=== PATIENT | female | born 1985 | race American Indian/Alaskan Native ===

== ENCOUNTER 2020-03-13 12:55 | Outpatient (REF) | payer OTHER, SELFPAY | END 2020-03-13 12:56 | disposition home or self-care (01) | LOC: HO.LAB 12:55 | PROVIDERS: Visit Provider Internal Medicine | DX: Z20.828 Contact with and (suspected) exposure to other viral communicable diseases (principal) | CPT/HCPCS: 87635 ==

== ENCOUNTER 2020-05-31 10:46 | Outpatient (REF) | payer OTHER, SELFPAY ==
[2020-06-01 10:30] LABS: BV Int Neg Control Negative (Negative); BV Int Pos Control Positive (Positive)
[2020-06-01 18:52] LABS: C. trachomatis RNA TMA NOT DETECTED (NOT DETECTED); N. gonorrhoeae RNA TMA NOT DETECTED (NOT DETECTED)
[2020-06-02 19:17] LABS: HPV mRNA E6/E7 Not Detected (Not Detected)
== END 2020-05-31 10:47 | disposition home or self-care (01) ==
LOC: HO.LAB 10:46
PROVIDERS: PCP Internal Medicine; Referring Provider Internal Medicine; Visit Provider Obstetrics & Gynecology
DX: Z12.4 Encounter for screening for malignant neoplasm of cervix (principal); R10.2 Pelvic and perineal pain; N89.8 Other specified noninflammatory disorders of vagina
CPT/HCPCS: 36415; 81002; 81025; 87480; 87491; 87510; 87591; 87624; 87660; 88141; 88142

== ENCOUNTER 2020-06-15 14:04 | Outpatient (REF) | payer OTHER, SELFPAY | END 2020-06-15 14:05 | disposition home or self-care (01) | LOC: HO.LAB 14:04 | PROVIDERS: Visit Provider Internal Medicine | DX: Z20.822 Contact with and (suspected) exposure to COVID-19 (principal) | CPT/HCPCS: 36415; C9803; U0003 ==

== ENCOUNTER 2020-06-28 13:26 | Outpatient (REF) | payer OTHER, SELFPAY ==
--- NOTE | ~2020-06-28 | US_ITS ---
EXAMINATION: PELVIC ULTRASOUND CLINICAL INFORMATION: Pain COMPARISON: Previous CT of the abdomen and pelvis October 2019 TECHNIQUE: Transabdominal and transvaginal pelvic ultrasound was performed. Transvaginal exam was performed for better visualization of the uterus and ovaries. FINDINGS: The uterus is retroverted and measures 10.8 x 5.5 x 7.3 cm in dimension. There is a 1.2 x 0.7 x 1 cm hypoechoic intramural lesion in the anterior upper uterine body suggestive of a fibroid. No other focal uterine lesion is seen. Endometrial thickness is normal estimated at 1 cm. The ovaries are normal in size. The right ovary measures 3.6 x 2 x 2.7 cm and the left ovary measures 3.8 x 1.8 x 2.8 cm. There are multiple small peripheral cysts or follicles seen in both ovaries. Appearance is questionable for polycystic ovarian syndrome. There is a small amount of fluid in the pelvis. US/US pelvic complete IMPRESSION: Small 1 cm uterine fibroid. Normal size ovaries with multiple peripheral simple cysts or follicles. Appearance is questionable for polycystic ovarian syndrome.
--- NOTE | ~2020-06-28 | US_ITS ---
EXAMINATION: PELVIC ULTRASOUND CLINICAL INFORMATION: Pain COMPARISON: Previous CT of the abdomen and pelvis October 2019 TECHNIQUE: Transabdominal and transvaginal pelvic ultrasound was performed. Transvaginal exam was performed for better visualization of the uterus and ovaries. FINDINGS: The uterus is retroverted and measures 10.8 x 5.5 x 7.3 cm in dimension. There is a 1.2 x 0.7 x 1 cm hypoechoic intramural lesion in the anterior upper uterine body suggestive of a fibroid. No other focal uterine lesion is seen. Endometrial thickness is normal estimated at 1 cm. The ovaries are normal in size. The right ovary measures 3.6 x 2 x 2.7 cm and the left ovary measures 3.8 x 1.8 x 2.8 cm. There are multiple small peripheral cysts or follicles seen in both ovaries. Appearance is questionable for polycystic ovarian syndrome. There is a small amount of fluid in the pelvis. US/US transvaginal IMPRESSION: Small 1 cm uterine fibroid. Normal size ovaries with multiple peripheral simple cysts or follicles. Appearance is questionable for polycystic ovarian syndrome.
== END 2020-06-28 13:27 | disposition home or self-care (01) ==
LOC: HO.US 13:26
PROVIDERS: PCP Internal Medicine; Visit Provider Obstetrics & Gynecology
DX: R10.2 Pelvic and perineal pain (principal)
CPT/HCPCS: 76830; 76856

== ENCOUNTER → 2020-07-12 11:58 | Outpatient (BNVA) | payer OTHER, SELFPAY | PROVIDERS: Visit Provider Obstetrics & Gynecology ==

== ENCOUNTER 2020-08-16 10:25 | Outpatient (REF) | payer OTHER, SELFPAY ==
--- NOTE | ~2020-08-16 | MM_ITS ---
EXAMINATION: MM SCREENING DIGITAL BREAST TOMOSYNTHESIS, BILATERAL CLINICAL INFORMATION: Screening. Asymptomatic. The lifetime risk of breast cancer based on the Tyrer-Cuzick Model is 15.5%. COMPARISON: Mammography: None. TECHNIQUE: Digital breast tomosynthesis is performed in both the craniocaudal and mediolateral oblique views along with computer-aided detection (CAD). Synthesized 2D images are generated from the tomosynthesis. FINDINGS: The breasts are heterogeneously dense, which may obscure small masses (ACR BI-RADS breast composition Category c). No abnormal dominant mass or suspicious grouping of microcalcifications is identified within the right breast. No region of architectural distortion appreciated. Within the upper outer aspect of the left breast there are some loosely grouped calcifications without linear or branching forms. Spot magnification views in craniocaudal and 90 degree mediolateral views suggested for better evaluation. MM/MM tomosynthesis screening BI IMPRESSION: Left breast calcifications for further evaluation as described. ASSESSMENT: BI-RADS 0: Incomplete - Need Additional Imaging Evaluation RECOMMENDATION: 1. Additional views of the left breast. 2. Targeted ultrasound if warranted after review of the additional views. 3. Radiology department staff will contact the patient for additional imaging. This patient's information was entered into a reminder system with a target due date for their next mammogram.
== END 2020-08-16 10:26 | disposition home or self-care (01) ==
LOC: HO.MAMMO 10:25
PROVIDERS: Visit Provider Internal Medicine
DX: Z12.31 Encounter for screening mammogram for malignant neoplasm of breast (principal)
CPT/HCPCS: 77063; 77067

== ENCOUNTER 2020-08-21 10:31 | Outpatient (REF) | payer OTHER, SELFPAY ==
--- NOTE | ~2020-08-21 | MM_ITS ---
EXAMINATION: MM DIAGNOSTIC DIGITAL MAMMOGRAPHY, LEFT CLINICAL INFORMATION: Recall from baseline screening for new loosely grouped calcifications anterior left breast. COMPARISON: Mammography: 08/16/2020 (baseline, BI-RADS 0). TECHNIQUE: Digital mammography is performed in the following views: Magnification CC, magnification ML. FINDINGS: The breasts are heterogeneously dense, which may obscure small masses (ACR BI-RADS breast composition Category c). The magnification views confirm probable benign focal regional calcifications subareolar and anterior 2:30-3:00 position. No focal grouping or ductal distribution. Management plan is for short interval six-month follow-up left mammography to include magnification views in 6 months. Results are discussed with the patient at time of visit, using an mine manager. MM/MM added views LT IMPRESSION: Probable benign regional calcifications subareolar and anterior outer left breast. ASSESSMENT: BI-RADS 3: Probably Benign RECOMMENDATION: Diagnostic left mammography in 6 months. This patient's information was entered into a reminder system with a target due date for their next mammogram.
== END 2020-08-21 10:32 | disposition home or self-care (01) ==
LOC: HO.MAMMO 10:31
PROVIDERS: Visit Provider Internal Medicine
DX: R92.1 Mammographic calcification found on diagnostic imaging of breast (principal)
CPT/HCPCS: 77065

== ENCOUNTER 2021-10-10 12:29 | Outpatient (REF) | payer OTHER, SELFPAY ==
[2021-10-11 11:16] LABS: BV Int Neg Control Negative (Negative); BV Int Pos Control Positive (Positive)
[2021-10-11 13:44] LABS: CT PCR NOT DETECTED (Not Detect.); NG PCR NOT DETECTED (Not Detect.)
== END 2021-10-10 12:30 | disposition home or self-care (01) ==
LOC: HO.LAB 12:29
PROVIDERS: PCP Internal Medicine; Visit Provider Advanced Practice Midwife
DX: N89.8 Other specified noninflammatory disorders of vagina (principal)
CPT/HCPCS: 87480; 87491; 87510; 87591; 87660; 99212

== ENCOUNTER 2022-02-20 10:48 | Emergency (ER) | payer OTHER, SELFPAY ==
[2022-02-20 11:02] VITALS: BP 115/77; PULSE 67; RESP 16; TEMP 36.8; O2SAT 99; BMI 27.4
--- NOTE | 2022-02-20 15:12 | ED.BACK ---
HPI - Back Pain/Injury General Chief Complaint: Back Pain/Injury Stated Complaint: LOWER RT BACK PAIN,-TRAUMA Time Seen by Provider: 02/20/22 15:09 Source: patient Mode of arrival: ambulatory Limitations: language barrier (Ivorian-speaking certified ophthalmic medical technician utilized) History of Present Illness HPI Narrative: Patient presents emergency department for evaluation of sudden onset right lower back pain. Occurred yesterday after bending forward to place food into her cabinet upon standing she suddenly felt the pain. It is present to the right lower back and radiates into the buttock and the top of the upper posterior leg. She denies any past history of back pain or injury. Denies fevers, chills, burning with micturition, urinary frequency/urgency/hesitancy, bladder or bowel dysfunction, numbness or tingling of the perineum or bilateral legs. Denies any recent surgical procedures, any known immune compromising conditions, personal history of cancer, or IV drug usage. MD elicited complaint: back pain Related Data Previous Rx's Medication Instructions Recorded metronidazole 0.75 % (37.5 mg/5 1 appful vaginal BID 5 days #70 10/10/21 gram) vaginal gel grams cyclobenzaprine 5 mg tablet 5 mg PO TID PRN muscle spasm #14 02/20/22 tabs Allergies Allergy/AdvReac Type Severity Reaction Status Date / Time No Known Allergies Allergy Verified 10/10/21 13:02 [No Known Allergies*] Review of Systems Review of Systems: Constitutional: No weight loss, fever, chills, weakness or fatigue. Skin: No rash or itching. Cardiovascular: No chest pain, chest pressure or chest discomfort. No palpitations or pedal edema. Respiratory: No shortness of breath, cough or sputum production. Gastrointestinal: No anorexia, nausea, vomiting or diarrhea. No abdominal pain or blood in stool. Genitourinary: No burning micturition. No urinary frequency or incontinence. Neurologic: No headache, dizziness, syncope, unilateral weakness, ataxia, numbness or tingling in the extremities. No change in bowel or bladder control. Musculoskeletal: + Back pain as noted in HPI. No joint pain or stiffness. Hematologic: No bleeding or bruising. Lymphatics: No enlarged lymph nodes. Psychiatric:No depression or anxiety. Endocrine: No polyuria or polydipsia. Yes all other systems are reviewed and are negative PMFSH Past Medical History Attestation statement: The following information was validated with the patient. Source: old records reviewed Surgical History History of bilateral tubal ligation History of Family History Family History Mother Uterine cancer Father Diabetes Maternal Grandmother No problems noted. Maternal Aunt Uterine cancer Daughter In good health Daughter In good health Daughter In good health Social History Social History Alcohol intake: current Alcohol intake frequency: holidays/special occasions only Advance Directives: No Advance Directives Information Provided: No Sexual orientation: Straight/Heterosexual Gender identity: Female Physical Exam Vital Signs: Vital Signs: Last Vital Signs Temp 98.2 F 02/20/22 11:02 Pulse 67 02/20/22 11:02 Resp 16 02/20/22 11:02 BP 115/77 02/20/22 11:02 Pulse Ox 99 02/20/22 11:02 O2 Del Method 02/20/22 11:02 BMI result Body Mass Index 27.4 Vital signs have been reviewed as normal and appeared to be correct. Blood pressure normal.? Heart rate normal.? Respiration rate normal. Temperature normal.? Oxygen saturation normal. Appearance: Alert.?Oriented to person, place and time. No acute distress.?Normal affect. Eyes: Pupils equal, round and reactive to light.? ENT: Pharynx normal.?? Neck: Normal inspection.? Neck supple.?? CVS: Heart sounds normal. Normal heart rate and rhythm.? Pulses normal; bilateral radial pulses 2+, bilateral posterior tibial/dorsalis pedis pulses 2+.? Respiratory: No respiratory distress.? Lung sounds clear to auscultation bilaterally?? Abdomen: Soft and non-tender. Normoactive bowel sounds. No pulsatile mass.?? Skin: Skin warm and dry.? Normal skin color.? Normal skin turgor.?? Extremities: No lower extremity edema.? No calf ttp? Back: + mild paraspinal muscular tenderness from rightlumbar region to coccyx. No CVA tenderness. No midline spinal tenderness, step-off's, or deformity. Full ROM intact in bilateral lower extremities. Straight leg test Positive on right; Straight leg test negative on left. No rashes, lesions, areas of induration or fluctuance, or signs of infection noted. Neuro: Moves all extremities spontaneously. 5/5 strength in hip extension/flexion, abduction, adduction. Sensation to light touch intact bilaterally. Patellar and Achilles reflex 2+ bilaterally. No ataxia, gait normal and steady. No focal neuro deficits. Course Course Course Narrative: Patient is a 36-year-old female with past medical history of tubal ligation who presents emergency department for evaluation of acute lower back pain. Declines possibility of due to tubal ligation, declines testing, did make patient aware that there is a small percentage of a chance that she could still become despite this procedure. Declines any genitourinary symptoms. Upon physical examination, Pain is most consistent with muscular pain, although cannot completely exclude herniated disc. On neurological exam there are no deficits. Not consistent with spinal fracture, spinal infection, epidural abscess No high risk past medical history including incontinence, fever, immunosuppression, recent surgery or lumbar puncture, coagulopathy, significant trauma, recent unintentional weight loss, pulsatile mass, history of cancer, history of TB, history of IV drug use that would warrant MRI or CT. Not consistent with pyelonephritis, urinary tract infection, renal calculi, pelvic infection, appendicitis, diverticulitis. On exam no concern for cauda equina syndrome. No imaging is currently indicated at this time. patient received ketorolac injection while in the emergency department, tolerated well with with some improvement in pain. Plan for discharge home with prescription for naproxen and cyclobenzaprine, reviewed worrisome signs and symptoms to return back to emergency department for and follow-up with primary care provider, and patient agreed with plan. she is discharged home in stable condition, ambulatory out of the department with steady gait. Discharge Plan Discharge Clinical Impression: Strain of lumbar region Patient Disposition: Home, Self-Care Instructions: Low Back Strain (ED), Acute Low Back Pain (ED), Lower Back Exercises (ED) Additional Instructions: Be sure to rest over the next couple of days. As discussed, please take naproxen daily as needed for pain. Do not take additional [id number] ibuprofen/Motrin/ Aleve / aspirin while taking this medication. You can take Tylenol 500 mg, 2 tablets (1,000mg) every 4-6 hours as needed for pain, but not to exceed 3 doses daily (3,000mg). You have also been given a prescription for cyclobenzaprine to use as needed for severe pain, this is a muscle relaxant. It may make you drowsy. He should not drive, drink alcohol, or operate machinery while taking this medication. You may return to emergency department with any new or worsening symptoms or concerns. Contact your primary care provider and arrange for a follow-up visit.? Prescriptions: New cyclobenzaprine 5 mg tablet 5 mg PO TID PRN (Reason: muscle spasm) Qty: 14 0RF No Action metronidazole 0.75 % gel 1 appful vaginal BID 5 Days Qty: 70 3RF Print Language: Ivorian
[2022-02-20] MEDS: Ketorolac Tromethamine 60 MG/2 ML VIAL IM (15:42)
== END 2022-02-20 16:01 | disposition home or self-care (01) ==
PROVIDERS: Emergency Provider Emergency Medicine; PCP Internal Medicine
DX: M54.50 Low back pain, unspecified (principal); Z79.899 Other long term (current) drug therapy
CPT/HCPCS: 96372; 99283; 99284; J1885

== ENCOUNTER 2022-12-03 13:11 | Outpatient (REF) | payer OTHER, SELFPAY | END 2022-12-03 13:12 | disposition home or self-care (01) | LOC: HO.LNP 13:11 | PROVIDERS: Visit Provider Internal Medicine | DX: Z13.89 Encounter for screening for other disorder (principal) ==

== ENCOUNTER 2022-12-23 13:59 | Emergency (ER) | payer OTHER, SELFPAY ==
[2022-12-23 14:01] VITALS: BP 136/84; PULSE 88; RESP 18; TEMP 36.3; O2SAT 96; BMI 30.2
--- NOTE | 2022-12-23 14:01 | ED.GENADULT ---
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 Denies known allergens, history of anaphylaxis, or prior reactions to shrimp. Denies known new exposures including new soaps/lotions, detergents, new medication, difficulty/inability to swallow, SOB, wheezing Onset (ago): minute(s) Related Data Previous Rx's Medication Instructions Recorded metronidazole 0.75 % (37.5 mg/5 1 appful vaginal BID 5 days #70 10/10/21 gram) vaginal gel grams cyclobenzaprine 5 mg tablet 5 mg PO TID PRN muscle spasm #14 02/20/22 tabs Allergies Allergy/AdvReac Type Severity Reaction Status Date / Time shrimp Allergy Unknown Verified 12/23/22 14:06 Review of Systems Review of Systems: Constitutional: No Fever, No Chills ENT/Mouth: No Ear Pain, No Nasal Congestion, +scratchy throat, No Rhinorrhea, No Swallowing Difficulty Cardiovascular: No Chest Pain, No SOB Respiratory: No Cough, No Sputum, No Wheezing Gastrointestinal: No Nausea, No Vomiting, No Abdominal pain Musculoskeletal: No joint pain, No Myalgias, No Joint Swelling Skin: No Skin Lesions, + rash Neuro: No Weakness, No Numbness Yes all other systems are reviewed and are negative Constitutional: Constitutional: Reports as per [facility] Past Medical History Attestation statement: The following information was validated with the patient. Source: old records reviewed Surgical History History of bilateral tubal ligation History of Family History Family History Mother Uterine cancer Father Diabetes Maternal Grandmother No problems noted. Maternal Aunt Uterine cancer Daughter In good health Daughter In good health Daughter In good health Social History Social History Alcohol intake: current Alcohol intake frequency: holidays/special occasions only Advance Directives: No Advance Directives Information Provided: No Sexual orientation: Straight/Heterosexual Gender identity: Female Physical Exam ED Vital Signs: Vital Signs - 24 hr 12/23/22 14:01 Temperature 97.4 F Pulse Rate 88 Respiratory Rate 18 Blood Pressure 136/84 Pulse Oximetry 96 Oxygen Delivery Method Room Air BMI result Body Mass Index 30.2 Const General: cooperative, healthy appearing, no acute distress, alert and awake Orientation/consciousness: patient oriented x3 Limitations: no limitations HENMT Head: Yes normal to inspection and Yes atraumatic Ears: hearing grossly normal bilaterally General nose exam: Normal external nose present Face and sinus: Yes normal facial exam Mouth: Normal oral and palatal mucosa present Throat: Yes posterior oropharynx normal, Yes tonsils normal, Yes uvula midline, No peritonsillar mass, No uvula laterally displaced and No uvular edema Eyes General: appearance normal, both eyes and all related structures EOM: EOMs intact bilaterally Neck Neck: Yes normal visual inspection, Yes no meningeal signs, Yes trachea midline, No anterior neck swelling and No torticollis Resp Effort & Inspection: normal respiratory effort, not labored, no respiratory distress, no stridor and not tachypneic Auscultation: clear to auscultation bilaterally and no wheezes Cardio Rate: regular rate Heart sounds: S1 normal heart sound present and S2 normal heart sound present Skin Other: + hives noted to face, neck, chest, LUE and one to back Wounds: no wounds Neuro General: patient oriented x3, tone normal and no meningeal signs Gait exam (Neuro): Normal gait present Extrem General: Yes normal to inspection Course Course Course Narrative: RME performed by Gale Lam PA-C. Patient is a 37 year old assigned female at presenting to the emergency department with a possible allergic reaction to shrimp. Patient placed back in the waiting room pending room availability. -1540--on re-evaluation patient's symptoms have resolved, hives no longer present. Reports symptomatic improvement Results discussed with patient including worrisome signs and symptoms and strict return precautions, and when to return to the emergency department. They verbalized understanding and feel safe for discharge at this time. 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 On exam vital signs stable, NAD, nontoxic appearing, physical exam as noted above with hives to face/chest, back and LUE. Talking in complete sentences, no respiratory distress, lungs CTA, no stridor, uvula midline. Concern for allergic reaction. No evidence of anaphylaxis. Plan: P.o. Pepcid, IM Solu-Medrol, re-evaluate Please refer to course for remaining clinical decision making, interpretation of labs/imaging results, and discussions with consultants and/or family members. Differential Diagnosis Differential Diagnoses: The differential diagnosis associated with the presentation includes As above External Record Review External record reviewed: Inpatient record, Office record, Outpatient record, Prior outpatient labs, Prior outpatient radiology, Primary care record and Outside ED record Tests considered The following testing was considered but not selected: As above Prescription Management I considered prescription management with: Other Critical Care Time Critical Care Time Critical Care Time: Yes Total Critical Care Time: 35 Attestation: I have personally provided critical care time exclusive of time spent on separately billable procedures. Time includes review of lab data, radiology results, discussion with consultants, and monitoring for potential decompensation. Intervention performed as documented. Discharge Plan Discharge Clinical Impression: Allergic reaction Patient Disposition: Home, Self-Care Prescriptions: No Action cyclobenzaprine 5 mg tablet 5 mg PO TID PRN (Reason: muscle spasm) Qty: 14 0RF metronidazole 0.75 % gel 1 appful vaginal BID 5 Days Qty: 70 3RF Referrals: Arsen Mcleod MD [Physician] - Dariusz Fox DO [Physician] - Brandi Alejandre MD [Physician] - Lucius Hodge MD [Physician] - Meg Donovan MD [Primary Care Provider] - 2 days Dora Lynn MD [Physician] -
[2022-12-23] MEDS: methylPREDNISolone Sod Succ 125 MG/2 ML VIAL 60 MG IM (14:28)
[2022-12-23] MEDS: Famotidine 20 MG TABLET PO (14:29)
== END 2022-12-23 15:48 | disposition home or self-care (01) ==
PROVIDERS: Emergency Provider Emergency Medicine; PCP Internal Medicine
DX: R21 Rash and other nonspecific skin eruption (principal); T78.40XA Allergy, unspecified, initial encounter; X58.XXXA Exposure to other specified factors, initial encounter
CPT/HCPCS: 96372; 99282; 99284; J2930

== ENCOUNTER 2022-12-24 06:31 | Emergency (ER) | payer OTHER, SELFPAY ==
[2022-12-24 06:37] VITALS: BP 134/86; PULSE 83; RESP 16; TEMP 36.7; O2SAT 96; BMI 30.2
--- NOTE | 2022-12-24 07:48 | ECG_ITS ---
Test Reason : epigastric pain Blood Pressure : / mmHG Vent. Rate : 062 BPM Atrial Rate : 062 BPM P-R Int : 230 ms QRS Dur : 080 ms QT Int : 420 ms P-R-T Axes : 050 033 051 degrees QTc Int : 426 ms Sinus rhythm with 1st degree A-V block Otherwise normal ECG No previous ECGs available Referred By: Sandy Mckenzie Electronically Signed By:Leonel Morales
--- NOTE | 2022-12-24 07:49 | ED_ITS ---
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 Patient ate shrimp yesterday started to develop rash and itching on her body (no known history of seafood allergy in particular to shrimp in the past), patient reported improvement itching and rash now patient started to have epigastric pain described as moderate 7/10 localized to the epigastric area with no radiation associated with mild nausea but no vomiting, normal bowel movement yesterday with no diarrhea, no blood in the stool, no dysuria, no frequency urination, no history of intra-abdominal surgery. No fever or chills. History of tubal ligation and C-sections. Related Data Previous Rx's Medication Instructions Recorded metronidazole 0.75 % (37.5 mg/5 1 appful vaginal BID 5 days #70 10/10/21 gram) vaginal gel grams cyclobenzaprine 5 mg tablet 5 mg PO TID PRN muscle spasm #14 02/20/22 tabs diphenhydramine HCl 25 mg capsule 25 mg PO TID PRN allergic reaction 12/23/22 (Benadryl) #14 caps epinephrine 0.3 mg/0.3 mL 0.3 mg (0.3 mL) IM Q4H PRN 12/23/22 injection, auto-injector (EpiPen) anaphylaxis #2 ea omeprazole 40 mg capsule,delayed 40 mg PO DAILY #14 caps 12/24/22 release Allergies Allergy/AdvReac Type Severity Reaction Status Date / Time shrimp Allergy Unknown Verified 12/23/22 14:06 Review of Systems Review of Systems All other systems are reviewed and are negative Constitutional: Reports as per HPI and Reports no additional constitutional complaints Eyes: Reports as per HPI and Reports no additional eye complaints Reports system reviewed and no additional complaints, except as documented Cardiovascular: Reports as per HPI and Reports no additional cardiovascular complaints Respiratory: Reports as per HPI and Reports no additional respiratory complaints Gastrointestinal: Reports as per HPI and Reports no additional gastrointestinal complaints Genitourinary: Reports no additional female genitourinary complaints Musculoskeletal: Reports no additional musculoskeletal complaints Skin/Breast: Reports system reviewed and no additional complaints, except as docu Psychiatric: Reports no additional psychiatric complaints Endocrine: Reports no additional endocrine complaints Hematologic/Lymphatic: Reports no additional hematologic/lymphatic complaints Allergic/Immunologic: Reports no additional allergic/immunologic complaints Reports system reviewed and no additional complaints, except as documented and Reports Abnormal speech present [facility] Past Medical History Surgical History History of bilateral tubal ligation History of Family History Family History Mother Uterine cancer Father Diabetes Maternal Grandmother No problems noted. Maternal Aunt Uterine cancer Daughter In good health Daughter In good health Daughter In good health Social History Social History Alcohol intake: never Smoked in Last 30 Days: No Use of substances other than those prescribed or required for medical reasons: No Advance Directives: No Advance Directives Information Provided: Yes Sexual orientation: Straight/Heterosexual Gender identity: Female Physical Exam ED Vital Signs: Vital Signs - 24 hr 12/24/22 06:37 Temperature 98.1 F Pulse Rate 83 Respiratory Rate 16 Blood Pressure 134/86 Pulse Oximetry 96 Oxygen Delivery Method Room Air BMI result Body Mass Index 30.2 Vital signs have been reviewed as appeared to be correct. Blood pressure normal. Heart rate normal. Respiration rate normal. Temperature normal. Oxygen saturation normal. Appearance: Alert. Oriented X3. No acute distress. Head: Normal external exam. Normocephalic. Atraumatic. No Thompson signs noted. No raccoon eyes noted Eyes: PERRLA. EOMI. Conjunctiva and sclera normal. Eyelids normal. ENT: TM's Normal. Pharynx normal. Uvula midline. Moist mucous membranes. No trismus noted. No drooling noted. No muffled voice noted. Neck: Normal inspection. Neck supple. FROM. No adenopathy. Thyroid Normal. No meningeal signs. No neck mass noted. CVS: Normal heart rate and rhythm. Heart sound normal. No murmurs noted. Pulses normal throughout. Respiratory: No respiratory distress. Painless inspiration. Breath sounds normal. No wheezes/rales/rhonchi noted. Chest nontender. No accessory muscle usage noted or decreased air movement noted. Abdomen: Soft and nontender. Bowel sounds normal in all 4 quadrants. No distention noted. No organomegaly noted. No visible injury noted. Back: No CVA tenderness. Full range of motion noted. Skin: Skin warm and dry. Normal skin color. Normal skin turgor. No rashes/lesions/lacerations noted. Extremities: No lower extremity edema. Extremities exhibit normal range of motion. Extremities nontender. Neuro: Oriented X 3. Cranial nerve exam: II-XII are grossly intact No motor deficit. No sensory deficit. Reflexes normal. Course Course Course Narrative: 37-year-old female had rash and itching after eating shrimp followed by epigastric pain and vomiting, patient's symptoms has improved after was given Pepcid and IV fluid, unremarkable labs, able to tolerate p.o. intake with improvement of the pain. Medical Decision Making Differential Diagnosis Differential Diagnoses: The differential diagnosis associated with the presen tation includes (Allergic reaction, gastritis, food poisoning, pancreatitis, gastroenteritis, severe anemia, electrolyte abnormality, dehydration, .) Admission/Observation Consideration of admission/observation: Escalation of care including a dmission/observation considered Lab Data MDM Lab Attestation statement: I reviewed the patient's lab results. 12/24/22 08:36 12/24/22 08:36 Labs: Lab Results 12/24/22 12/24/22 12/24/22 Range/Units 08:36 08:36 08:36 WBC 10.1 (4.8-10.8) X10*3/uL RBC 3.95 L (4.20-5.50) X10*6/uL Hgb 10.6 L (12.0-16.0) g/dl Hct 33.3 L (37.0-47.0) % MCV 84.3 (80.0-98.0) fL MCH 26.8 L (27.0-33.0) pg MCHC 31.8 (31.0-35.0) g/dl RDW 16.9 H (11.0-16.0) % Plt Count 322 (160-400) X10*3/uL MPV 10.7 (9.4-12.3) fL Immature Gran % (Auto) 0.3 (0.0-0.4) % Neut % (Auto) 78.6 H (45-73) % Lymph % (Auto) 13.2 L (20-40) % [place] % (Auto) 7.5 (2-11) % Eos % (Auto) 0.2 (0-4) % Baso % (Auto) 0.2 (0-2) % Lymph # (Auto) 1.3 (1.2-4.9) X10*3/uL [place] # (Auto) 0.8 (0.1-1.2) X10*3/uL Eos # (Auto) 0.0 (0.0-0.4) X10*3/uL Baso # (Auto) 0.0 (0.0-0.2) X10*3/uL Abs Immat Gran (auto) 0.03 (0.00-0.03) X10*3/uL Absolute Neuts (auto) 7.9 (2.0-8.3) x10*3/uL Absolute Nucleated RBC 0.000 (0.0-0.012) X10*3/uL Nucleated RBC % (auto) 0.0 (0.0-0.2) /100WBC Sodium 138 (135-145) mmol/L Potassium 3.9 (3.3-5.1) mmol/L Chloride 108 (96-108) mmol/L Carbon Dioxide 25 (22-29) mmol/L Anion Gap 9 L (12-20) BUN 11 (9-16) mg/dL Creatinine 0.78 (0.5-1.4) mg/dL Estim Creat Clear Calc 89.1 Estimated GFR > 60 Random Glucose 102 (60-115) mg/dL Calcium 9.9 (8.4-10.2) mg/dL Total Bilirubin 0.3 (0.0-1.0) mg/dL Direct Bilirubin 0.1 (0.0-0.5) mg/dL AST 14 (5-31) U/L ALT 10 (0-31) U/L Alkaline Phosphatase 65 (39-117) U/L Troponin I High Sens < 2.7 (<3.5-17.0) ng/L Total Protein 7.9 (6.5-8.0) g/dL Albumin 4.3 (3.5-5.0) g/dL Lipase 16 (8-78) U/L Medications Administered Discontinued Medications Generic Name Dose Route Start Last Admin Trade Name Freq PRN Reason Stop Dose Admin Al Hydroxide/Mg Hydroxide 30 ml 12/24/22 07:49 12/24/22 08:41 Magnesium Hydrox/Alum Hydrox 30 Ml Oral.Susp PO 12/24/22 07:50 30 ml ONCE ONE Administration Famotidine 20 mg 12/24/22 07:47 12/24/22 08:41 Famotidine/Pf 20 Mg/2 Ml Vial IVPUSH 12/24/22 07:48 20 mg ONCE ONE Administration Sodium Chloride 1,000 mls @ 999 mls/hr 12/24/22 07:47 12/24/22 08:41 Ns IV 12/24/22 08:47 999 mls/hr .Q1H1M ONE Administration Discharge Plan Discharge Clinical Impression: Gastritis Patient Disposition: Home, Self-Care Instructions: Gastritis (ED) Prescriptions: New omeprazole 40 mg capsule,delayed release(DR/EC) 40 mg PO DAILY Qty: 14 0RF No Action cyclobenzaprine 5 mg tablet 5 mg PO TID PRN (Reason: muscle spasm) Qty: 14 0RF epinephrine [EpiPen] 0.3 mg/0.3 mL auto-injector 0.3 mg IM Q4H PRN (Reason: anaphylaxis) Qty: 2 0RF diphenhydramine HCl [Benadryl] 25 mg capsule 25 mg PO TID PRN (Reason: allergic reaction) Qty: 14 0RF metronidazole 0.75 % gel 1 appful vaginal BID 5 Days Qty: 70 3RF Referrals: Meg Donovan MD [Primary Care Provider] -
--- NOTE | 2022-12-24 07:50 | PC.NURSE ---
pt a&ox3. respirations even and unlabored. skin appropriate for ethnicity. pt abdomen soft non tender. pt reporting epigastric pain. bowel sounds active in all four quadrants. pt reports being her at [facility] yesterday for an allergic reaction to fish, pt was treated and sent home with medications. pt reports epigastric pain and headache after taking those medications this morning. vss.
[2022-12-24 08:39] LABS: MANUAL DIFF FLAG NO
[2022-12-24 08:41] LABS: Basophils Percent Auto 0.2 % (0-2); Eosinophils Percent Auto 0.2 % (0-4); Hematocrit 33.3 % (37.0-47.0); Hemoglobin 10.6 g/dl (12.0-16.0); Imm Gran Abs Auto 0.03 X10*3/uL (0.00-0.03); Imm Gran Pct Auto 0.3 % (0.0-0.4); Lymphocytes Absolute Auto 1.3 X10*3/uL (1.2-4.9); Lymphocytes Percent Auto 13.2 % (20-40); Mean Corpuscular HGB Conc 31.8 g/dl (31.0-35.0); Mean Corpuscular Hemoglobin 26.8 pg (27.0-33.0); Mean Corpuscular Volume 84.3 fL (80.0-98.0); Mean Platelet Volume 10.7 fL (9.4-12.3); Monocytes Absolute Auto 0.8 X10*3/uL (0.1-1.2); Monocytes Percent Auto 7.5 % (2-11); Neutrophils Absolute Auto 7.9 x10*3/uL (2.0-8.3); Neutrophils Percent Auto 78.6 % (45-73); Platelet Count 322 X10*3/uL (160-400); Red Blood Count 3.95 X10*6/uL (4.20-5.50); Red Cell Distribution Width 16.9 % (11.0-16.0); White Blood Count 10.1 X10*3/uL (4.8-10.8)
[2022-12-24] MEDS: Famotidine/PF 20 MG/2 ML VIAL IVPUSH (08:41)
[2022-12-24] MEDS: 0.9 % Sodium Chloride 1,000 ML 999 ML IV (08:41)
[2022-12-24] MEDS: Magnesium Hydrox/Alum Hydrox 30 ML ORAL.SUSP PO (08:41)
[2022-12-24 09:02] LABS: Alanine Aminotransferase 10 U/L (0-31); Albumin Level 4.3 g/dL (3.5-5.0); Alkaline Phosphatase 65 U/L (39-117); Anion Gap 9 (12-20); Aspartate Amino Transferase 14 U/L (5-31); Bilirubin Direct 0.1 mg/dL (0.0-0.5); Bilirubin Total 0.3 mg/dL (0.0-1.0); Blood Urea Nitrogen 11 mg/dL (9-16); Calcium 9.9 mg/dL (8.4-10.2); Carbon Dioxide 25 mmol/L (22-29); Chloride 108 mmol/L (96-108); Creatinine Clr Calc Pharmacy 89.1; Estimated Glomerular Filt Rate > 60; Glucose Random 102 mg/dL (60-115); Lipase 16 U/L (8-78); Potassium 3.9 mmol/L (3.3-5.1); Sodium 138 mmol/L (135-145); Total Protein 7.9 g/dL (6.5-8.0)
[2022-12-24 09:23] LABS: Troponin-I High Sensitivity < 2.7 ng/L (<3.5-17.0)
[2022-12-24 09:44] LABS: HCG Quantitative < 2 mIU/mL
== END 2022-12-24 09:57 | disposition home or self-care (01) ==
PROVIDERS: Emergency Provider Emergency Medicine; PCP Internal Medicine
DX: K29.70 Gastritis, unspecified, without bleeding (principal); R94.31 Abnormal electrocardiogram [ECG] [EKG]; R11.2 Nausea with vomiting, unspecified; Z79.899 Other long term (current) drug therapy
CPT/HCPCS: 36415; 80048; 80076; 83690; 84484; 84702; 85025; 93005; 96361; 96374; 99284

== ENCOUNTER → 2022-12-24 07:48 | Outpatient (BNV) | payer OTHER, SELFPAY | PROVIDERS: Emergency Provider Emergency Medicine; PCP Internal Medicine; Visit Provider Internal Medicine Cardiovascular Disease | DX: I44.0 Atrioventricular block, first degree (principal) | CPT/HCPCS: 93010 ==

== ENCOUNTER 2023-02-17 06:44 | Emergency (ER) | payer OTHER, SELFPAY ==
[2023-02-17 07:32] VITALS: BP 126/82; PULSE 76; RESP 17; TEMP 36; O2SAT 100; BMI 31.2
[2023-02-17 08:58] LABS: IDNOW Serial# 9DB6401D; Influenza A Negative (Negative)
[2023-02-17 08:59] LABS: Influenza B2 Negative (Negative)
[2023-02-17 09:04] LABS: COVID-19 Test Negative (Negative); IDNOW Serial# 08D9AD1C
--- NOTE | 2023-02-17 09:08 | ED_ITS ---
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 Patient states that over the last 3 days she has felt generally unwell with nausea, vomiting, headache, and body aches. Patient denies any dizziness, lightheadedness, abdominal pain, fever, chills, blurry vision, double vision, loss of vision, chest pain, difficulty breathing, shortness of breath, back pain, night sweats, pain with urination, increased urinary frequency, increased urinary urgency, blood in her urine or stool, syncope or a near syncopal episode, recent trauma or falls, bowel incontinence, bladder incontinence, bowel retention, bladder retention, or any other complaints at this time. Onset (ago): day(s) (3) Severity: mild Severity scale (1-10): 2 Quality: aching and dull Relieving factors: none Exacerbating factors: none Associated symptoms: nausea/vomiting Treatments prior to arrival: none Related Data Previous Rx's Medication Instructions Recorded metronidazole 0.75 % (37.5 mg/5 1 appful vaginal BID 5 days #70 10/10/21 gram) vaginal gel grams cyclobenzaprine 5 mg tablet 5 mg PO TID PRN muscle spasm #14 02/20/22 tabs diphenhydramine HCl 25 mg capsule 25 mg PO TID PRN allergic reaction 12/23/22 (Benadryl) #14 caps epinephrine 0.3 mg/0.3 mL 0.3 mg (0.3 mL) IM Q4H PRN 12/23/22 injection, auto-injector (EpiPen) anaphylaxis #2 ea omeprazole 40 mg capsule,delayed 40 mg PO DAILY #14 caps 12/24/22 release ondansetron 4 mg disintegrating 4 mg PO Q8H 3 days #9 tabs 02/17/23 tablet Allergies Allergy/AdvReac Type Severity Reaction Status Date / Time shrimp Allergy Unknown Verified 12/23/22 14:06 Review of Systems Constitutional: Constitutional: Reports no additional constitutional complaints, Reports body ache(s), Denies chills, Denies fever(s), Reports headache(s) and Denies night sweats Eyes: Eyes: Reports no additional eye complaints, Denies blurry vision, Denies change in vision, Denies diplopia, Denies eye discharge, Denies loss of vision and Denies eye pain ENT: Denies dizziness and Reports headache(s) Cardiovascular: Cardiovascular: Reports no additional cardiovascular complaints, Denies chest pain, Denies lightheadedness, Denies Loss of Consciousness and Denies dyspnea Respiratory: Respiratory: Reports no additional respiratory complaints and Denies dyspnea Gastrointestinal: Gastrointestinal: Reports no additional gastrointestinal complaints, Denies abdominal pain, Denies melena, Denies hematochezia, Denies change in bowel habits, Denies change in stool character, Reports nausea and Reports vomiting Genitourinary: Genitourinary: Denies hematuria, Denies urinary frequency, Denies dysuria, Denies urinary incontinence, Denies urinary hesitancy and Denies urinary urgency Musculoskeletal: Musculoskeletal: Reports no additional musculoskeletal complaints, Denies numbness and Denies tingling Neurologic: Denies dizziness, Reports headache(s), Denies loss of vision, Denies numbness and Denies tingling Psychiatric: Psychiatric: Reports no additional psychiatric complaints Endocrine: Endocrine: Reports no additional endocrine complaints Hematologic/Lymphatic: Hematologic/Lymphatic: Reports no additional hematologic/lymphatic complaints Allergic/Immunologic: Allergic/Immunologic: Reports no additional allergic/immunologic complaints [facility] Past Medical History Attestation statement: The following information was validated with the patient. Source: old records reviewed and nursing notes reviewed Medical History Vaginal discharge Pelvic pain Well woman exam Surgical History History of bilateral tubal ligation History of Family History Family History Mother Uterine cancer Father Diabetes Maternal Grandmother No problems noted. Maternal Aunt Uterine cancer Daughter In good health Daughter In good health Daughter In good health Social History Social History Alcohol intake: never Advance Directives: No Sexual orientation: Straight/Heterosexual Gender identity: Female Physical Exam ED Vital Signs: Vital Signs - 24 hr 02/17/23 07:32 Temperature 96.8 F Pulse Rate 76 Respiratory Rate 17 Blood Pressure 126/82 Pulse Oximetry 100 Oxygen Delivery Method Room Air BMI result Body Mass Index 31.2 Const General: cooperative, no acute distress, alert and awake Nutritional Appearance: well nourished Orientation/consciousness: patient oriented x3 Limitations: no limitations HENMT Head: Yes normal to inspection and Yes atraumatic Ears: hearing grossly normal bilaterally and external ears normal General nose exam: Normal external nose present, no nasal discharge noted and no epistaxis Face and sinus: Yes normal facial exam, No abrasion and No laceration Mouth: Normal oral and palatal mucosa present, no drooling and no muffled voice Eyes General: appearance normal, both eyes and all related structures Periorbital: periorbital findings normal Eyelids: Yes eyelids normal Conjunctivae: conjunctivae normal Pupils: Equal, round and reactive pupils present EOM: EOMs intact bilaterally Neck Neck: Yes normal visual inspection, Yes full ROM and Yes no lymphadenopathy Chest Chest palpation & inspection: normal inspection of the chest Resp Effort & Inspection: normal respiratory effort and able to speak in complete sentences Auscultation: clear to auscultation bilaterally Cardio Rate: regular rate Rhythm: regular rhythm GI Inspection: Yes normal to inspection Palpation (GI): Soft to palpation, not firm, nontender and no guarding Neuro General: patient oriented x3 and moves all extremities Cranial nerves: Yes Equal, round and reactive pupils present Cognition (Neuro): normal cognition Motor exam (neuro): 5/5 motor strength present throughout Sensory Exam: Normal double simultaneous stimulation for sensation Coordination: [id number] test normal Extrem General: Yes normal to inspection, Yes full ROM and Yes capillary refill normal Psych Appearance: grossly normal Mental Status: mental status grossly normal Affect: normal affect Attitude: cooperative Thought process: Normal thought process present Thought content: Normal thought content present Insight: Good insight present (Psych) Medical Decision Making Medical Decision Making MDM Narrative: Patient is a 37 year old assigned female at with no reported medical history presenting to the emergency department today with a headache, nausea, and vomiting. Patient's physical exam was unremarkable. Patient's COVID/RSV/Influenza swab was negative. I explained my physical exam findings as well as all test results to the patient. I answered all questions asked by the patient. I stressed the importance of the patient taking her medication as prescribed. I stressed the importance of the patient following up with her primary care provider. I stressed the importance of the patient returning to the emergency department immediately if her symptoms were to worsen or if she were to develop any dizziness, shortness of breath, difficulty breathing, chest pain, blurry vision, loss of vision, nausea, vomiting, abdominal pain, fever, chills, back pain, or any other complaints. Patient verbalized agreement and understanding with this treatment plan and discharge. Differential Diagnosis Differential Diagnoses: The differential diagnosis associated with the presentation includes Gastroenteritis Viral illness COVID-19 Influenza RSV Lab Data MDM Lab Attestation statement: I reviewed the patient's lab results. My interpretation of these studies and their corresponding values is that they are grossly normal. Labs: Lab Results 02/17/23 Range/Units 08:26 COVID-19 (ANASTASIIA) Negative (Negative) COVID-19 Clin Com See Note Influenza Type A (MARE) Negative (Negative) Influenza Type B (MARE) Negative (Negative) Influenza A & B Note See Note Prescription Management I considered prescription management with: Other (patient prescribed an anti- emetic) Discharge Plan Discharge Clinical Impression: Viral illness Patient Disposition: Home, Self-Care Instructions: Viral Syndrome (ED) Additional Instructions: Follow up with your primary care provider. Return to the emergency department immediately if your symptoms worsen or if you develop any dizziness, shortness of breath, difficulty breathing, chest pain, blurry vision, loss of vision, nausea, vomiting, abdominal pain, fever, chills, back pain, or any other complaints. Karoline un seguimiento con darling proveedor de atenci?n primaria. Regrese al departamento de emergencias inmediatamente si radha s?ntomas empeoran o si presenta mareos, dificultad para respirar, dificultad para respirar, dolor en el pecho, visi?n borrosa, p?rdida de la visi?n, n?useas, v?mitos, dolor abdominal, fiebre, escalofr?os, dolor de espalda o cualquier otras quejas. Prescriptions: New ondansetron 4 mg tablet,disintegrating 4 mg PO Q8H 3 Days Qty: 9 0RF No Action cyclobenzaprine 5 mg tablet 5 mg PO TID PRN (Reason: muscle spasm) Qty: 14 0RF epinephrine [EpiPen] 0.3 mg/0.3 mL auto-injector 0.3 mg IM Q4H PRN (Reason: anaphylaxis) Qty: 2 0RF diphenhydramine HCl [Benadryl] 25 mg capsule 25 mg PO TID PRN (Reason: allergic reaction) Qty: 14 0RF omeprazole 40 mg capsule,delayed release(DR/EC) 40 mg PO DAILY Qty: 14 0RF metronidazole 0.75 % gel 1 appful vaginal BID 5 Days Qty: 70 3RF Referrals: Meg Donovan MD [Primary Care Provider] - Stand Alone Forms: Work/School Release Print Language: Danish
== END 2023-02-17 10:21 | disposition home or self-care (01) ==
PROVIDERS: Emergency Provider Emergency Medicine; PCP Internal Medicine
DX: B34.9 Viral infection, unspecified (principal); Z20.822 Contact with and (suspected) exposure to COVID-19; Z20.828 Contact with and (suspected) exposure to other viral communicable diseases
CPT/HCPCS: 87502; 87635; 99283

== ENCOUNTER 2023-08-08 15:54 | Emergency (ER) | payer MEDICAID, SELFPAY ==
--- NOTE | ~2023-08-08 | US_ITS ---
EXAMINATION: US ABDOMEN LIMITED CLINICAL INFORMATION: Nausea, vomiting, elevated liver function tests. COMPARISON: None available. TECHNIQUE: Real-time imaging of the right upper quadrant abdominal viscera. FINDINGS: PANCREAS: The visualized head and body of the pancreas appears unremarkable. Remainder of the pancreas is obscured by bowel gas. LIVER: Liver measures 14.4 cm. The liver contour is normal. Increased parenchymal echogenicity.. No focal hepatic lesion. There is no intrahepatic biliary duct dilatation seen. GALLBLADDER: Normal. The gallbladder is physiologically distended without evidence of stones, sludge, polyps, wall thickening or pericholecystic fluid. COMMON BILE DUCT: Normal in caliber measuring 0.2 cm in diameter. RIGHT KIDNEY: Normal. No hydronephrosis. No renal calculi or focal parenchymal lesions. The kidney measures 9.4 cm in maximum dimension. FREE FLUID: None. US/US abdomen limited IMPRESSION: There is generalized increase in hepatic echotexture, consistent with fatty infiltration or hepatocellular disease. Please correlate clinically. No focal hepatic mass or intrahepatic biliary duct dilatation is seen.
[2023-08-08 16:42] VITALS: BP 134/97; PULSE 100; RESP 16; TEMP 37; O2SAT 98; BMI 28.3
--- NOTE | 2023-08-08 17:01 | ED_ITS ---
HPI - Nausea/Vomiting/Diarrhea General Chief complaint: General Medical Stated complaint: vomiting 4-5 days Time Seen by Provider: 08/08/23 17:41 Source: patient and RN notes reviewed Mode of arrival: ambulatory Limitations: no limitations History of Present Illness HPI Narrative: This is a 38-year-old female presenting to the emergency department with complaints of vomiting and diarrhea for the last 5 days. She states that she has had no recent sick contacts. She reports decreased appetite due to abdominal pain and nausa/vomiting. Denies fevers, chills, cough, shortness of breath, chest pain, bloody or black stool. Denies taking any medications at home to treat her current symptoms. No other complaints or concerns at this time. MD elicited complaint: nausea, vomiting, diarrhea and abdominal pain Onset (ago): day(s) Description of vomiting: food contents Associated nausea: Yes Associated abdominal pain: Yes Location of pain: diffuse Radiation: diffuse Pain consistency: constant Severity: moderate Quality: cramping Exacerbating factors: eating Relieving factors: none Associated symptoms: nausea/vomiting Related Data Previous Rx's Medication Instructions Recorded metronidazole 0.75 % (37.5 mg/5 1 appful vaginal BID 5 days #70 10/10/21 gram) vaginal gel grams cyclobenzaprine 5 mg tablet 5 mg PO TID PRN muscle spasm #14 02/20/22 tabs diphenhydramine HCl 25 mg capsule 25 mg PO TID PRN allergic reaction 12/23/22 (Benadryl) #14 caps epinephrine 0.3 mg/0.3 mL 0.3 mg (0.3 mL) IM Q4H PRN 12/23/22 injection, auto-injector (EpiPen) anaphylaxis #2 ea omeprazole 40 mg capsule,delayed 40 mg PO DAILY #14 caps 12/24/22 release ondansetron 4 mg disintegrating 4 mg PO Q8H 3 days #9 tabs 02/17/23 tablet ondansetron 4 mg disintegrating 4 mg PO Q6-8H PRN nausea and 08/08/23 tablet vomiting #10 tabs Allergies Allergy/AdvReac Type Severity Reaction Status Date / Time shrimp Allergy Unknown Verified 12/23/22 14:06 Review of Systems 2 Review of Systems: Yes all other systems are reviewed and are negative Constitutional: Constitutional: Reports as per HPI Gastrointestinal: Gastrointestinal: Reports nausea PMFSH Past Medical History Medical History Vaginal discharge Pelvic pain Well woman exam Surgical History History of bilateral tubal ligation History of Family History Family History Mother Uterine cancer Father Diabetes Maternal Grandmother No problems noted. Maternal Aunt Uterine cancer Daughter In good health Daughter In good health Daughter In good health Social History Social History Alcohol intake: never Sexual orientation: Straight/Heterosexual Gender identity: Female Physical Exam 2 Vital Signs: Vital Signs: Last Vital Signs Temp 97.6 F 08/08/23 21:45 Pulse 91 08/08/23 21:45 Resp 17 08/08/23 21:45 BP 129/88 08/08/23 21:45 Pulse Ox 98 08/08/23 21:45 O2 Del Method Room Air 08/08/23 21:45 BMI result Body Mass Index 28.3 Const: General: cooperative, comfortable and no acute distress O rientation/consciousness: patient oriented x3 Limitations: no limitations HEENT: Head: Yes normal to inspection, Yes normocephalic and Yes atraumatic Ears: hearing grossly normal bilaterally General nose exam: Normal external nose present Face and sinus: Yes normal facial exam Mouth: Normal oral and palatal mucosa present, oropharynx normal and moist mucous membranes Throat: Yes posterior oropharynx normal Eyes: General: appearance normal, both eyes and all related structures E yelids: Yes eyelids normal Conjunctivae: conjunctivae normal Sclerae: s clerae normal Pupils: Equal, round and reactive pupils present EOM: EOMs intact bilaterally Neck: Neck: Yes normal visual inspection, Yes full ROM and Yes no lymphadenopathy Lymphatic: no lymphadenopathy noted Chest: Chest palpation & inspection: normal inspection of the chest Resp: Effort & Inspection: normal respiratory effort and able to speak in complete sentences Auscultation: clear to auscultation bilaterally, no crackles, no rales, no rhonchi and no wheezes Cardio: Rate: regular rate Rhythm: regular rhythm Heart sounds: S1 normal heart sound present and S2 normal heart sound present GI: Other: TTP in the RUQ.No rebound or guarding Inspection: Yes normal to inspection Skin: General skin exam: no rashes or lesions noted Trauma: no lacerations or abrasions Wounds: no wounds Neuro: General: patient oriented x3 and moves all extremities Cranial nerves: Yes Equal, round and reactive pupils present Extrem: General: Yes normal to inspection Right upper extremity: normal to inspection Left upper extremity: normal to inspection Right lower extremity: normal to inspection Left lower extremity: normal to inspection Course Course Course Narrative: This is a rapid medical exam: Additional HPI, ROS, PE not included below will be deferred to primary provider. Complaints of n/v/d x 4 days. Denies pain or fever, but states that she has not checked Reevaluation(s) Reevaluation #1: pt feeling much better after IV fluids and zofran. She is eating and drinking normally. K was replenished with oral potassium. US unremarkable for acute pathology - evidence of fatty liver seen > advised to f/u with PCP. Pt given return precautions. She is stable for dc Medications Administered Discontinued Medications Generic Name Dose Route Start Last Admin Trade Name Freq PRN Reason Stop Dose Admin Sodium Chloride 1,000 mls @ 999 mls/hr 08/08/23 17:56 08/08/23 21:15 Ns IV 08/08/23 18:56 Infused .Q1H1M ONE Infusion Ondansetron HCl 4 mg 08/08/23 17:56 08/08/23 18:26 Ondansetron Hcl 4 Mg/2 Ml Vial IVPUSH 08/08/23 17:57 4 mg ONCE ONE Administration Potassium Chloride 40 meq 08/08/23 19:21 08/08/23 21:15 Potassium Chloride Er 20 Meq Tab.Er.Prt PO 08/08/23 19:22 40 meq ONCE ONE Administration Medical Decision Making Medical Decision Making [facility] Narrative: This is a 38 y/o F presenting to the ER with complaints of abdominal pain, nausea, and vomiting x 5 days. On arrival, pt well appearing, in no acute distress. BP mildly elevated, otherwise vitals WNL. Pt has mild TTP in the epigastric and RUQ. DDX including gastritis, gastroenteritis, electrolyte derangement, RAYMON. Less likely cholangitis, cholecystitis. Plan: Labs, US, IV fluids, zofran, re-evaluate Differential Diagnosis Differential Diagnoses: The differential diagnosis associated with the presentation includes see above Admission/Observation Consideration of admission/observation: Escalation of care including admission/observation considered Escalation of care including admission/observation considered however given workup today not warranted at this time. Lab Data MDM Lab Attestation statement: I reviewed the patient's lab results. No leukocytosis, K low at 3.0, hyponatremic at 133, slight elevation in liver enzymes 08/08/23 18:23 08/08/23 18:23 Labs: Lab Results 08/08/23 08/08/23 Range/Units 17:20 18:23 WBC 8.0 (4.8-10.8) X10*3/uL RBC 4.68 (4.20-5.50) X10*6/uL Hgb 12.8 D (12.0-16.0) g/dl Hct 37.8 (37.0-47.0) % MCV 80.8 (80.0-98.0) fL MCH 27.4 (27.0-33.0) pg MCHC 33.9 (31.0-35.0) g/dl RDW 16.8 H (11.0-16.0) % Plt Count 311 (160-400) X10*3/uL MPV 11.0 (9.4-12.3) fL Immature Gran % (Auto) 0.4 (0.0-0.4) % Neut % (Auto) 80.8 H (45-73) % Lymph % (Auto) 11.9 L (20-40) % [place] % (Auto) 6.0 (2-11) % Eos % (Auto) 0.8 (0-4) % Baso % (Auto) 0.1 (0-2) % Lymph # (Auto) 1.0 L (1.2-4.9) X10*3/uL [place] # (Auto) 0.5 (0.1-1.2) X10*3/uL Eos # (Auto) 0.1 (0.0-0.4) X10*3/uL Baso # (Auto) 0.0 (0.0-0.2) X10*3/uL Abs Immat Gran (auto) 0.03 (0.00-0.03) X10*3/uL Absolute Neuts (auto) 6.4 (2.0-8.3) x10*3/uL Absolute Nucleated RBC 0.000 (0.0-0.012) X10*3/uL Nucleated RBC % (auto) 0.0 (0.0-0.2) /100WBC Sodium 133 L (135-145) mmol/L Potassium 3.0 L (3.3-5.1) mmol/L Chloride 95 L (96-108) mmol/L Carbon Dioxide 25 (22-29) mmol/L Anion Gap 16 (12-20) BUN 9 (9-16) mg/dL Creatinine 0.83 (0.5-1.4) mg/dL Estim Creat Clear Calc 80.2 Estimated GFR > 60 Random Glucose 110 (60-115) mg/dL Calcium 10.3 H (8.4-10.2) mg/dL Magnesium 1.9 (1.6-2.6) mg/dL Total Bilirubin 0.9 (0.0-1.0) mg/dL Direct Bilirubin 0.3 (0.0-0.5) mg/dL AST 72 H (5-31) U/L ALT 59 H (0-31) U/L Alkaline Phosphatase 71 (39-117) U/L Total Protein 9.0 H (6.5-8.0) g/dL Albumin 5.0 (3.5-5.0) g/dL Lipase 31 (8-78) U/L Influenza Type A (PCR) NEGATIVE (Negative) Influenza Type B (PCR) NEGATIVE (Negative) RSV RNA Qual (PCR) NEGATIVE (Negative) SARS-CoV-2 RNA (RT-PCR) NEGATIVE (Negative) Radiology Impression Discussion of test interpretation with radiology: I have reviewed the radiologist's reading. Radiologist Impression: US/US abdomen limited IMPRESSION: There is generalized increase in hepatic echotexture, consistent with fatty infiltration or hepatocellular disease. Please correlate clinically. No focal hepatic mass or intrahepatic biliary duct dilatation is seen. Dictated By: Orlando Weinstein MD External Record Review External record reviewed: Inpatient record, Office record, Outpatient record, Prior outpatient labs, Prior outpatient radiology, Primary care record and Outside ED record Discharge Plan Discharge Clinical Impression: Nausea & vomiting, Hypokalemia Patient Disposition: Home, Self-Care Instructions: Potassium Content of Foods List (ED), Acute Nausea and Vomiting (ED) Additional Instructions: You were seen in the emergency department due to nausea, and vomiting. We had given you IV fluids as well as IV nausea medication. Your blood work was reassuring. You do have low potassium, which was replenished with oral potassium. You also have slightly elevated liver enzymes, please follow-up with your primary care physician next week to have these repeated. Your ultrasound does show evidence of fatty liver. Please follow-up with your primary care physician Drink plenty of fluids get plenty of rest. Take Zofran as needed for nausea and/or vomiting. If any new or worsening symptoms occur including but not limited to chest pain, shortness of breath, please return for re-evaluation. Prescriptions: New ondansetron 4 mg tablet,disintegrating 4 mg PO Q6-8H PRN (Reason: nausea and vomiting) Qty: 10 0RF No Action cyclobenzaprine 5 mg tablet 5 mg PO TID PRN (Reason: muscle spasm) Qty: 14 0RF epinephrine [EpiPen] 0.3 mg/0.3 mL auto-injector 0.3 mg IM Q4H PRN (Reason: anaphylaxis) Qty: 2 0RF diphenhydramine HCl [Benadryl] 25 mg capsule 25 mg PO TID PRN (Reason: allergic reaction) Qty: 14 0RF omeprazole 40 mg capsule,delayed release(DR/EC) 40 mg PO DAILY Qty: 14 0RF ondansetron 4 mg tablet,disintegrating 4 mg PO Q8H 3 Days Qty: 9 0RF metronidazole 0.75 % gel 1 appful vaginal BID 5 Days Qty: 70 3RF Interventions: ED Discharge Assessment Last Done: 08/08/23 21:45 Discharge Date/Time: 08/08/23 21:45
[2023-08-08 18:21] LABS: Influenza A PCR NEGATIVE (Negative); Influenza B PCR NEGATIVE (Negative); Resp Syncy Virus RNA Qual PCR NEGATIVE (Negative); SARS COV2 PCR INHOUSE NEGATIVE (Negative)
[2023-08-08] MEDS: 0.9 % Sodium Chloride 1,000 ML 999 ML IV (18:26)
[2023-08-08] MEDS: ondansetron HCL 4 MG/2 ML VIAL IVPUSH (18:26)
[2023-08-08 18:27] LABS: MANUAL DIFF FLAG NO
[2023-08-08 18:28] VITALS: BP 130/89; PULSE 102; RESP 20; TEMP 36.8; O2SAT 97
[2023-08-08 18:28] LABS: Basophils Percent Auto 0.1 % (0-2); Eosinophils Absolute Auto 0.1 X10*3/uL (0.0-0.4); Eosinophils Percent Auto 0.8 % (0-4); Hematocrit 37.8 % (37.0-47.0); Hemoglobin 12.8 g/dl (12.0-16.0); Imm Gran Abs Auto 0.03 X10*3/uL (0.00-0.03); Imm Gran Pct Auto 0.4 % (0.0-0.4); Lymphocytes Percent Auto 11.9 % (20-40); Mean Corpuscular HGB Conc 33.9 g/dl (31.0-35.0); Mean Corpuscular Hemoglobin 27.4 pg (27.0-33.0); Mean Corpuscular Volume 80.8 fL (80.0-98.0); Monocytes Absolute Auto 0.5 X10*3/uL (0.1-1.2); Neutrophils Absolute Auto 6.4 x10*3/uL (2.0-8.3); Neutrophils Percent Auto 80.8 % (45-73); Platelet Count 311 X10*3/uL (160-400); Red Blood Count 4.68 X10*6/uL (4.20-5.50); Red Cell Distribution Width 16.8 % (11.0-16.0)
--- NOTE | 2023-08-08 18:30 | PC.NURSE ---
#22 IV PLACED R-AC, MEDS GIVEN ORDERED. Fluids running.
[2023-08-08 18:46] LABS: Alanine Aminotransferase 59 U/L (0-31); Alkaline Phosphatase 71 U/L (39-117); Anion Gap 16 (12-20); Aspartate Amino Transferase 72 U/L (5-31); Bilirubin Direct 0.3 mg/dL (0.0-0.5); Bilirubin Total 0.9 mg/dL (0.0-1.0); Blood Urea Nitrogen 9 mg/dL (9-16); Calcium 10.3 mg/dL (8.4-10.2); Carbon Dioxide 25 mmol/L (22-29); Chloride 95 mmol/L (96-108); Creatinine Clr Calc Pharmacy 80.2; Estimated Glomerular Filt Rate > 60; Glucose Random 110 mg/dL (60-115); Lipase 31 U/L (8-78); Magnesium 1.9 mg/dL (1.6-2.6); Sodium 133 mmol/L (135-145)
[2023-08-08] MEDS: Potassium Chloride ER 20 MEQ TAB.ER.PRT 40 MEQ PO (21:15)
[2023-08-08 21:25] VITALS: BP 129/88; PULSE 91; RESP 17; TEMP 36.4; O2SAT 98
[2023-08-08 21:45] VITALS: BP 129/88; PULSE 91; RESP 17; TEMP 36.4; O2SAT 98
== END 2023-08-08 21:45 | disposition home or self-care (01) ==
PROVIDERS: Nurse Practitioner Family; Physician Assistant Medical; Emergency Provider Internal Medicine; PCP Internal Medicine
DX: R11.2 Nausea with vomiting, unspecified (principal); E87.6 Hypokalemia; Z11.52 Encounter for screening for COVID-19; Z20.828 Contact with and (suspected) exposure to other viral communicable diseases
CPT/HCPCS: 0241U; 36415; 76705; 80048; 80076; 83690; 83735; 85025; 96361; 96374; 99283; 99284; J2405

== ENCOUNTER 2024-11-23 02:03 | Emergency (ER) | payer MEDICAID, SELFPAY ==
[2024-11-23 02:23] VITALS: BP 131/88; PULSE 115; RESP 18; TEMP 36.3; O2SAT 96; BMI 28.3
== END 2024-11-23 05:47 | disposition left against medical advice (07) ==
PROVIDERS: Emergency Provider Emergency Medicine
DX: R20.0 Anesthesia of skin (principal); Z53.21 Procedure and treatment not carried out due to patient leaving prior to being seen by health care provider
CPT/HCPCS: 99281

== ENCOUNTER 2024-11-23 17:55 | Emergency (ER) | payer MEDICAID, SELFPAY ==
[2024-11-23 18:16] VITALS: BP 130/83; PULSE 118; RESP 16; TEMP 36.5; O2SAT 96; BMI 30.6
[2024-11-23 18:36] LABS: MANUAL DIFF FLAG NO
[2024-11-23 18:38] LABS: Hematocrit 36.0 % (37.0-47.0); Hemoglobin 12.0 g/dl (12.0-16.0); Imm Gran Abs Auto 0.02 X10*3/uL (0.00-0.03); Imm Gran Pct Auto 0.3 % (0.0-0.4); Lymphocytes Absolute Auto 2.6 X10*3/uL (1.2-4.9); Mean Corpuscular HGB Conc 33.3 g/dl (31.0-35.0); Mean Corpuscular Hemoglobin 28.1 pg (27.0-33.0); Mean Corpuscular Volume 84.3 fL (80.0-98.0); NRBC Abs Auto 0.000 X10*3/uL (0.0-0.012); NRBC Pct Auto 0.0 /100WBC (0.0-0.2); Platelet Count 329 X10*3/uL (160-400); Red Blood Count 4.27 X10*6/uL (4.20-5.50); White Blood Count 7.5 X10*3/uL (4.8-10.8)
--- NOTE | 2024-11-23 18:50 | ED_ITS ---
HPI - General Adult General Chief complaint: General Medical Stated complaint: Back pain Time Seen by Provider: 11/23/24 21:08 Source: patient Mode of arrival: ambulatory Limitations: language barrier History of Present Illness ED Provider: Dr. Yadira Soriano HPI narrative: Previously healthy 23-year-old female presenting with right flank and low back pain radiating down right leg ongoing for the last 3 days or so. Admits she was on vacation when the pain started but had been drinking beer and did not feel the pain was very significant. Reports more noticeable pain over the last 24 hours. No reported injury. Describes a clenching pain in the right flank that radiates down her right leg and has been constant since it started. She denies dysuria or hematuria but occasionally has suprapubic abdominal pain associated with this back pain. No reported fever though she admits her mouth has been dry which is what happens when she gets sick. Last bowel movement was today and normal. No chest pain or difficulty breathing. Denies known sick contacts. Related Data Previous Rx's ?Medication ?Instructions ?Recorded metronidazole 0.75 % (37.5 mg/5 1 appful vaginal BID 5 days #70 10/10/21 gram) vaginal gel grams cyclobenzaprine 5 mg tablet 5 mg PO TID PRN muscle spa sm #14 02/20/22 tabs diphenhydramine HCl 25 mg capsule 25 mg PO TID PRN all ergic reaction 12/23/22 (Benadryl) #14 caps epinephrine 0.3 mg/0.3 mL 0.3 mg (0.3 mL) IM Q4H PRN 0 12/23/22 injection, auto-injector (EpiPen) anaphylaxis #2 ea omeprazole 40 mg capsule,delayed 40 mg PO DAILY #14 ca ps 12/24/22 release ondansetron 4 mg disintegrating 4 mg PO Q8H 3 days #9 tabs 02/17/23 tablet ondansetron 4 mg disintegrating 4 mg PO Q6-8H PRN naus ea and 08/08/23 tablet vomiting #10 tabs cyclobenzaprine 10 mg tablet 10 mg PO TID #10 tabs 01/10 nitrofurantoin 100 mg PO Q12H 7 days #14 ca ps 11/23/24 monohydrate/macrocrystals 100 mg capsule (Macrobid) Allergies Allergy/AdvReac Type Severity Reaction Status Date / Time shrimp Allergy Unknown Verified 11/23/24 18:20 Review of Systems 2 Review of Systems: Yes all other systems are reviewed and are negative ( As per HPI) [facility] Past Medical History Attestation statement: The following information was validated with the patient. [facility] Narrative: occasional alcohol use, denies tobacco use Medical History Vaginal discharge Pelvic pain Well woman exam Surgical History History of bilateral tubal ligation History of Family History Family History Mother Uterine cancer Father Diabetes Maternal Grandmother No problems noted. Maternal Aunt Uterine cancer Daughter In good health Daughter In good health Daughter In good health Social History Social History Alcohol intake: never Advance Directives: No Advance Directives Information Provided: No Do you have a plan to hurt others: No Plan Sexual orientation: Straight/Heterosexual Gender identity: Female Physical Exam ED Vital Signs: Vital Signs - 24 hr 11/23/24 18:16 Temperature 97.7 F Pulse Rate 118 H Respiratory Rate 16 Blood Pressure 130/83 Pulse Oximetry 96 Oxygen Delivery Method Room Air BMI result Body Mass Index 30.6 Exam: Constitutional: Well-appearing, no acute distress HEENT: No lymphadenopathy, neck is supple, trachea midline, PERRLA, EOMI, no nystagmus Chest: Equal rise, no crepitus, no deformities Respiratory: Lungs are clear to auscultation bilaterally, no wheezes/rales/rhonchi Cardio: Regular rate and rhythm, no murmurs rubs or gallops, peripheral pulses strong GI: Soft, nondistended, right flank tenderness to percussion, positive bowel sounds in all quadrants : Deferred Skin: Warm, dry, no rashes Musculoskeletal: No deformities, normal tone, right SI joint pain with tenderness overlying the piriformis, no crepitus, neurovascularly intact distally, negative straight leg raise Neuro: Alert and oriented, cranial nerves 2-12 intact, equal strength and sensation in bilateral upper and lower extremities Psych: Normal affect, appropriate mood, no visual or auditory hallucinations Course Course Course Narrative: RME: 39-year-old female history of hypokalemia presents to ED for generalized right-sided pain from head to toe and also back pain. Patient denies any fever, chills, chest pain, shortness of breath abdominal pain slurred speech facial droop or paralysis of extremities. NIH score is 0. Labs back x-ray ordered. Reevaluation(s) Reevaluation #1: patient feeling improved after Flexeril and Motrin. Treated as UTI with Macrobid. Discussed importance of follow-up as well as strict return precautions. Discharged home stable condition. Time: 21:45 Medications Administered Discontinued Medications Generic Name Dose Route Start Last Admin Trade Name Freq PRN Reason Stop Dose Admin Diazepam 2 mg 11/23/24 21:26 11/23/24 21:33 Diazepam 2 Mg Tablet PO 11/23/24 21:27 2 mg ONCE ONE Administration Ibuprofen 600 mg 11/23/24 21:26 11/23/24 21:33 Ibuprofen 600 Mg Tablet PO 11/23/24 21:27 600 mg ONCE ONE Administration Nitrofurantoin Macrocrystals 100 mg 11/23/24 21:26 11/23/24 21:33 Nitrofurantoin Monohyd/M-Cryst 100 Mg Capsule PO 11/23/24 21:27 100 mg ONCE ONE Administration Medical Decision Making Medical Decision Making [facility] Narrative: Patient presented today with a chief complaint of flank pain. Differential diagnosis is certainly broad and includes but is not limited to kidney stone, infection such as pyelonephritis, vascular pathology, musculoskeletal pain, among many others. Clinical picture most consistent with sciatica though she does have some white blood cells in her urine with bacteria. Given her flank tenderness to percussion, we will treat as UTI with Macrobid. Also medicated with Valium and Motrin for potential musculoskeletal pain. Patient is hemodynamically stable, resting comfortably, nontoxic. Differential Diagnosis Differential Diagnoses: The differential diagnosis associated with the presentation includes ( as per HPI) Lab Data MDM Lab Attestation statement: I reviewed the patient's lab results. 11/23/24 18:33 11/23/24 18:33 Labs: Lab Results 11/23/24 11/23/24 Range/Units 18:33 19:39 WBC 7.5 (4.8-10.8) X10*3/uL RBC 4.27 (4.20-5.50) X10*6/uL Hgb 12.0 (12.0-16.0) g/dl Hct 36.0 L (37.0-47.0) % MCV 84.3 (80.0-98.0) fL MCH 28.1 (27.0-33.0) pg MCHC 33.3 (31.0-35.0) g/dl RDW 16.2 H (11.0-16.0) % Plt Count 329 (160-400) X10*3/uL MPV 10.5 (9.4-12.3) fL Immature Gran % (Auto) 0.3 (0.0-0.4) % Neut % (Auto) 58.0 (45-73) % Lymph % (Auto) 34.6 (20-40) % [place] % (Auto) 5.8 (2-11) % Eos % (Auto) 0.9 (0-4) % Baso % (Auto) 0.4 (0-2) % Lymph # (Auto) 2.6 (1.2-4.9) X10*3/uL [place] # (Auto) 0.4 (0.1-1.2) X10*3/uL Eos # (Auto) 0.1 (0.0-0.4) X10*3/uL Baso # (Auto) 0.0 (0.0-0.2) X10*3/uL Abs Immat Gran (auto) 0.02 (0.00-0.03) X10*3/uL Absolute Neuts (auto) 4.3 (2.0-8.3) x10*3/uL Absolute Nucleated RBC 0.000 (0.0-0.012) X10*3/uL Nucleated RBC % (auto) 0.0 (0.0-0.2) /100WBC Sodium 143 (135-145) mmol/L Potassium 3.1 L (3.3-5.1) mmol/L Chloride 108 (96-108) mmol/L Carbon Dioxide 24 (22-29) mmol/L Anion Gap 14 (12-20) BUN 9 (9-16) mg/dL Creatinine 0.82 (0.5-1.4) mg/dL Estim Creat Clear Calc 86.9 Estimated GFR > 60 Random Glucose 112 (60-115) mg/dL Calcium 8.8 D (8.4-10.2) mg/dL Magnesium 2.1 (1.6-2.6) mg/dL Total Bilirubin 0.3 (0.0-1.0) mg/dL AST 25 (5-31) U/L ALT 26 (0-31) U/L Alkaline Phosphatase 65 (39-117) U/L Total Creatine Kinase 128 (26-140) U/L Total Protein 7.6 (6.5-8.0) g/dL Albumin 4.6 (3.5-5.0) g/dL Beta HCG, Quant < 2 mIU/mL Urine Color Yellow Urine Appearance Turbid Urine pH 5.5 (5.0-9.0) Ur Specific [place] 1.020 (1.005-1.025) Urine Protein Trace (Neg-Trace) mg/dL Urine Glucose (UA) Negative (Negative) mg/dL Urine Ketones Trace (Negative) mg/dL Urine Blood Trace H (Negative) Urine Nitrite Negative (Negative) Ur Leukocyte Esterase Moderate (2+) H (Negative) Urine RBC 0-2 (0-2) /HPF Urine WBC 21-50 H (0-5) /HPF Ur Squamous Epith Cells >20 (0-2) /HPF Urine Bacteria 4+ (None Seen) Hyaline Casts 11-20 (0-2) /LPF Prescription Management I considered prescription management with: Pain Medication and Antibiotic Discharge Plan Discharge Clinical Impression: UTI (urinary tract infection), 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 Patient Disposition: Home, Self-Care Instructions: Urinary Tract Infection in Women (ED), Acute Low Back Pain (ED) Prescriptions: New cyclobenzaprine 10 mg tablet 10 mg PO TID Qty: 10 0RF nitrofurantoin monohyd/m-cryst [Macrobid] 100 mg capsule 100 mg PO Q12H 7 Days Qty: 14 0RF Rx Instructions: must administer with a meal/food No Action cyclobenzaprine 5 mg tablet 5 mg PO TID PRN (Reason: muscle spasm) Qty: 14 0RF epinephrine [EpiPen] 0.3 mg/0.3 mL auto-injector 0.3 mg IM Q4H PRN (Reason: anaphylaxis) Qty: 2 0RF diphenhydramine HCl [Benadryl] 25 mg capsule 25 mg PO TID PRN (Reason: allergic reaction) Qty: 14 0RF ondansetron 4 mg tablet,disintegrating 4 mg PO Q6-8H PRN (Reason: nausea and vomiting) Qty: 10 0RF omeprazole 40 mg capsule,delayed release(DR/EC) 40 mg PO DAILY Qty: 14 0RF ondansetron 4 mg tablet,disintegrating 4 mg PO Q8H 3 Days Qty: 9 0RF metronidazole 0.75 % gel 1 appful vaginal BID 5 Days Qty: 70 3RF Interventions: ED Discharge Assessment Last Done: 11/23/24 21:38 Discharge Date/Time: 11/23/24 21:39 Print Language: [place]
[2024-11-23 19:01] LABS: Alanine Aminotransferase 26 U/L (0-31); Albumin Level 4.6 g/dL (3.5-5.0); Alkaline Phosphatase 65 U/L (39-117); Anion Gap 14 (12-20); Aspartate Amino Transferase 25 U/L (5-31); Blood Urea Nitrogen 9 mg/dL (9-16); Calcium 8.8 mg/dL (8.4-10.2); Carbon Dioxide 24 mmol/L (22-29); Chloride 108 mmol/L (96-108); Creatinine Clr Calc Pharmacy 86.9; Estimated Glomerular Filt Rate > 60; Magnesium 2.1 mg/dL (1.6-2.6); Potassium 3.1 mmol/L (3.3-5.1); Sodium 143 mmol/L (135-145); Total Protein 7.6 g/dL (6.5-8.0)
[2024-11-23 19:57] LABS: Appearance Urine Turbid; Glucose Urine UA Negative (Negative); PH 5.5 (5.0-9.0); Specific Gravity - Urine 1.020 (1.005-1.025); UMIC TRIGGER UACC YES
[2024-11-23 20:26] LABS: UACC Culture Trigger YES
[2024-11-23 21:38] VITALS: BP 130/83; PULSE 104; RESP 16; TEMP 36.5; O2SAT 96
== END 2024-11-23 21:39 | disposition home or self-care (01) ==
PROVIDERS: Physician Assistant; Emergency Provider Emergency Medicine
DX: N39.0 Urinary tract infection, site not specified (principal); G58.8 Other specified mononeuropathies; M54.41 Lumbago with sciatica, right side
CPT/HCPCS: 36415; 80053; 81001; 81003; 82550; 83735; 84702; 85025; 87086; 99283

== ENCOUNTER 2025-04-02 20:10 | Emergency (ER) | payer MEDICAID, SELFPAY ==
[2025-04-02 20:15] VITALS: BP 147/98; PULSE 98; RESP 16; TEMP 36.8; O2SAT 98; BMI 27.4
--- NOTE | 2025-04-02 20:16 | ED_ITS ---
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 No radiation of pain. No associated numbness/tingling of the extremities. No numbness in the groin. No bowel or bladder incontinence. No fevers, chills. Related Data Previous Rx's ?Medication ?Instructions ?Recorded metronidazole 0.75 % (37.5 mg/5 1 appful vaginal BID 5 days #70 10/10/21 gram) vaginal gel grams cyclobenzaprine 5 mg tablet 5 mg PO TID PRN muscle spa sm #14 02/20/22 tabs diphenhydramine HCl 25 mg capsule 25 mg PO TID PRN all ergic reaction 12/23/22 (Benadryl) #14 caps epinephrine 0.3 mg/0.3 mL 0.3 mg (0.3 mL) IM Q4H PRN 0 12/23/22 injection, auto-injector (EpiPen) anaphylaxis #2 ea omeprazole 40 mg capsule,delayed 40 mg PO DAILY #14 ca ps 12/24/22 release ondansetron 4 mg disintegrating 4 mg PO Q8H 3 days #9 tabs 02/17/23 tablet ondansetron 4 mg disintegrating 4 mg PO Q6-8H PRN naus ea and 08/08/23 tablet vomiting #10 tabs cyclobenzaprine 10 mg tablet 10 mg PO TID #10 tabs 01/10 nitrofurantoin 100 mg PO Q12H 7 days #14 ca ps 11/23/24 monohydrate/macrocrystals 100 mg capsule (Macrobid) cyclobenzaprine 10 mg tablet 10 mg PO Q8H PRN muscle s pasm #12 04/02/25 tabs ibuprofen 600 mg tablet 600 mg PO Q6H PRN pain #30 t abs 04/02/25 Allergies Allergy/AdvReac Type Severity Reaction Status Date / Time shrimp Allergy Unknown Verified 04/02/25 20:17 Review of Systems Review of Systems: Yes all other systems are reviewed and are negative Constitutional: Constitutional: Reports no additional constitutional complaints, Denies body ache(s), Denies chills, Denies fever(s), Denies headache(s) and Denies weakness Eyes: Eyes: Reports no additional eye complaints and Denies change in vision ENT: Reports system reviewed and no additional complaints, except as documented, Denies dizziness, Denies headache(s), Denies nasal congestion, Denies nasal discharge and Denies neck pain Cardiovascular: Cardiovascular: Reports no additional cardiovascular complaints, Denies chest pain, Denies leg edema and Denies dyspnea Respiratory: Respiratory: Reports no additional respiratory complaints, Denies cough and Denies dyspnea Gastrointestinal: Gastrointestinal: Reports no additional gastrointestinal complaints, Denies abdominal pain, Denies diarrhea, Denies nausea and Denies vomiting Genitourinary: Genitourinary: Reports no additional female genitourinary complaints and Denies urinary incontinence Musculoskeletal: Musculoskeletal: Reports no additional musculoskeletal complaints, Reports back pain, Denies arthralgias, Denies joint swelling, Denies neck pain, Denies numbness and Denies tingling Integumentary/Breasts: Skin/Breast: Reports system reviewed and no additional complaints, except as docu and Denies rash Neurologic: Reports system reviewed and no additional complaints, except as documented, Denies Abnormal speech present, Denies dizziness, Denies headache(s), Denies numbness, Denies tingling and Denies weakness PMFSH Past Medical History Attestation statement: The following information was validated with the patient. Source: old records reviewed and nursing notes reviewed Medical History Vaginal discharge Pelvic pain Well woman exam Surgical History History of bilateral tubal ligation History of Family History Family History Mother Uterine cancer Father Diabetes Maternal Grandmother No problems noted. Maternal Aunt Uterine cancer Daughter In good health Daughter In good health Daughter In good health Social History Social History Alcohol intake: never Do you have a plan to hurt others: No Plan Sexual orientation: Straight/Heterosexual Gender identity: Female Physical Exam Vital Signs: Vital Signs: Last Vital Signs Temp 98.2 F 04/02/25 20:15 Pulse 98 04/02/25 20:15 Resp 16 04/02/25 20:15 BP 147/98 H 04/02/25 20:15 Pulse Ox 98 04/02/25 20:15 O2 Del Method Room Air 04/02/25 20:15 BMI result Body Mass Index 27.4 Const: General: cooperative, healthy appearing, comfortable and no acute distress Orientation/consciousness: patient oriented x3 Limitations: no limitations HEENT: Head: Yes normal to inspection Ears: hearing grossly normal bilaterally General nose exam: Normal external nose present Face and sinus: Yes normal facial exam Mouth: Normal oral and palatal mucosa present Throat: Yes posterior oropharynx normal Eyes: General: appearance normal, both eyes and all related structures Pupils: Equal, round and reactive pupils present Neck: Neck: Yes normal visual inspection Chest: Chest palpation & inspection: normal inspection of the chest Resp: Effort & Inspection: normal respiratory effort Auscultation: clear to auscultation bilaterally Cardio: Rate: regular rate Rhythm: regular rhythm Peripheral pulses: Peripheral pulses 2+ throughout GI: Inspection: Yes normal to inspection Palpation (GI): Soft to palpation and nontender Auscultation: normal bowel sounds Back/Spine/Pelvis: Other: No palpable midline tenderness, step offs or deformities Pain on palpation to the lumbar bilateral soft tissue area. Worsened with flexion of the lumbar spine. Thoracic/Lumbar Spine: thoracic and lumbar spine normal to inspection Skin: General skin exam: no rashes or lesions noted Neuro: General: patient oriented x3, moves all extremities, no focal motor deficits and normal sensation to monofilament Cranial nerves: Yes Equal, round and reactive pupils present Cognition (Neuro): normal cognition Speech: No Abnormal speech present Gait exam (Neuro): Normal gait present Motor exam (neuro): 5/5 motor strength present throughout Sensory Exam: Normal double simultaneous stimulation for sensation Deep tendon reflexes (DTR's): Right patellar reflex intensity grade: 2+ and Left patellar reflex intensity grade: 2+ Extrem: General: Yes normal to inspection Course Course Course Narrative: Gregoria Woods [employer] 04/02 2017 This is a rapid medical exam. Deferred additional HPI, ROS, PE to primary provider. Medical Decision Making Medical Decision Making MDM Narrative: 39yo female here with lower back pain after lifting a client today at work. No radiation of pain. No associated numbness/tingling of the extremities. No numbness in the groin. No bowel or bladder incontinence. No fevers, chills. No palpable midline tenderness, step offs or deformities Pain on palpation to the lumbar bilateral soft tissue area. Worsened with flexion of the lumbar spine. Normal neuro deficits or red flag symptoms. Likely lumbar strain Will treat with NSAID, muscle relaxant, supportive measures at home Differential Diagnosis Differential Diagnoses: The differential diagnosis associated with the presentation includes lumbar strain low suspician for cord compression, caude equina, malignancy, fracture, epidural abscess, AAA, renal colic, pyelo Admission/Observation Consideration of admission/observation: Escalation of care including admission/observation considered low suspician for cord compression, caude equina, malignancy, fracture, epidural abscess, AAA, renal colic, pyelo to warrant additional imaging, consultation and or admission/transfer Tests considered The following testing was considered but not selected: low suspician for cord compression, caude equina, malignancy, fracture, epidural abscess, AAA, renal colic, pyelo to warrant additional imaging Prescription Management I considered prescription management with: Pain Medication Discharge Plan Discharge Clinical Impression: Lumbar strain Patient Disposition: Home, Self-Care Instructions: Low Back Strain (ED) Additional Instructions: heat or ice to the area gentle stretching no heavy lifting or bending notify your employer Prescriptions: New ibuprofen 600 mg tablet 600 mg PO Q6H PRN (Reason: pain) Qty: 30 0RF cyclobenzaprine 10 mg tablet 10 mg PO Q8H PRN (Reason: muscle spasm) Qty: 12 0RF No Action cyclobenzaprine 5 mg tablet 5 mg PO TID PRN (Reason: muscle spasm) Qty: 14 0RF epinephrine [EpiPen] 0.3 mg/0.3 mL auto-injector 0.3 mg IM Q4H PRN (Reason: anaphylaxis) Qty: 2 0RF diphenhydramine HCl [Benadryl] 25 mg capsule 25 mg PO TID PRN (Reason: allergic reaction) Qty: 14 0RF ondansetron 4 mg tablet,disintegrating 4 mg PO Q6-8H PRN (Reason: nausea and vomiting) Qty: 10 0RF cyclobenzaprine 10 mg tablet 10 mg PO TID Qty: 10 0RF nitrofurantoin monohyd/m-cryst [Macrobid] 100 mg capsule 100 mg PO Q12H 7 Days Qty: 14 0RF Rx Instructions: must administer with a meal/food omeprazole 40 mg capsule,delayed release(DR/EC) 40 mg PO DAILY Qty: 14 0RF ondansetron 4 mg tablet,disintegrating 4 mg PO Q8H 3 Days Qty: 9 0RF metronidazole 0.75 % gel 1 appful vaginal BID 5 Days Qty: 70 3RF Stand Alone Forms: Work/School Release Print Language: [place]
[2025-04-02 21:48] VITALS: BP 147/98; PULSE 98; RESP 16; TEMP 36.8; O2SAT 98
== END 2025-04-02 20:45 | disposition home or self-care (01) ==
PROVIDERS: Emergency Provider Student in an Organized Health Care Education/Training Program; PCP Internal Medicine
DX: S39.012A Strain of muscle, fascia and tendon of lower back, initial encounter (principal); X50.9XXA Other and unspecified overexertion or strenuous movements or postures, initial encounter; Y93.F2 Activity, caregiving, lifting; Y92.9 Unspecified place or not applicable; Y99.0 Civilian activity done for income or pay
CPT/HCPCS: 99282; 99283